=== PATIENT | male | born 1980 | race African-American/Black ===

== ENCOUNTER 2016-11-21 13:45 | Emergency (ER) | payer OTHER ==
[~2016-11-21] VITALS: Ht 185.4 cm; Wt 81.6 kg
[2016-11-21 13:51] VITALS: BP 149/70
== END 2016-11-21 17:13 | disposition admitted as inpatient to this hospital (09) ==
LOC: ERH 13:45
DX: Z76.0 Encounter for issue of repeat prescription (principal)